=== PATIENT | male | born 1940 | race Caucasian/White ===

== ENCOUNTER → 2016-12-28 | Day surgery (SDC) | payer OTHER ==
[~2016-12-28] VITALS: Ht 167.6 cm; Wt 76.6 kg
[~2016-12-28] MED LIST: *ENALAPRILAT 1.25 MG/ML VIAL PERIprocedural Use ONLY ONE; AMLO5TAB2 PO; ASPI-110 PO; CARV12.52 PO; CEPH-459 PO; CHLORHEXIDINE GLUCONATE 2 % 1 PACK (2 CLOTHS) TOPICAL PRN; DEXAMETHASONE SOD PHOS 4 MG/ML VIAL IV ONE; DO NOT ADM ANY ANTICOAGULANT DRUGS PRN; FURO20TA PO; GLYCOPYRROLATE 1 MG/5 ML SYRINGE IV PUSH ONE; INSULIN HUMAN REGULAR 1,000 UNITS/10 ML VIAL SQ PRN; IOHEXOL 350 MG/ML 50 ML BTL (for RAD DIAG) OTHER ONE; LACTATED RINGER'S 1000 ML INJ 1,000 ML IV ONE; LACTATED RINGER'S 1000 ML IV PRN; LEVO50TA4 PO; LIDOCAINE HCL 1% PF 5 ML AMPULE OTHER ONE; METOPROLOL TARTRATE 25 MG TAB PO PRN; ONDANSETRON HCL 4 MG/2 ML VIAL IV PUSH ONE; PERC5TAB12 PO; PHENYLEPH/NS 1000 MCG/10 ML SYR IV ONE; PIOG15TA5 PO; POVIDONE IODINE 5% (ANTISEPSIS KIT) 4 APPLICATIONS EACH NARE PRN; PROPOFOL 200 MG/20 ML AMP IV ONE; SIMV40TA PO; SODIUM CHLORID 0.9% 500 ML IV PRN; SODIUM CHLORIDE 0.9% FLUSH 10 ML FLUSH IV FLUSH PRN; ceFAZolin 1,000 MG/NS 100 ML IV SCH; ePHEDrine/NS 25 MG/5 ML SYR IV ONE
[2016-12-28 09:21] LABS: AUTOMATED NEUTROPHIL # 3.7 TH/MM3 (1.8-7.7); BASOPHIL % 0.5 % (0.0-2.0); EOSINOPHIL # 0.4 TH/MM3 (0-0.4); HEMATOCRIT 35.4 % (39.0-51.0); HEMO FLAGS DIFF FINAL; LYMPH % 24.2 % (9.0-44.0); LYMPHOCYTE # 1.5 TH/MM3 (1.0-4.8); MEAN CELL VOLUME 87.8 FL (80.0-100.0); MEAN CORPUSCULAR HEMOGLOBIN 29.7 PG (27.0-34.0); MEAN CORPUSCULAR HGB CONC 33.8 % (32.0-36.0); MONO % 8.7 % (0.0-8.0); NEUT % 60.6 % (16.0-70.0); PLATELET COUNT 152 TH/MM3 (150-450); RED BLOOD COUNT 4.03 MIL/MM3 (4.50-5.90); RED CELL DISTRIBUTION WIDTH 15.3 % (11.6-17.2); WHITE BLOOD COUNT 6.1 TH/MM3 (4.0-11.0)
--- NOTE | 2016-12-28 10:21 | EKG ---
Date Performed: 12/28/2016 Time Performed: 08:43:29 PTAGE: 76 years EKG: SINUS BRADYCARDIA WITH FIRST DEGREE AV BLOCK BORDERLINE LEFT AXIS DEVIATION ABNORMAL ECG Co mpared to prior tracing no significant change PREVIOUS TRACING : 08/29/2012 11.03 DOCTOR: Jose Miguel Wilson Interpretating Date/Time 12/28/2016 10:21:18
--- NOTE | 2016-12-28 12:56 | PD.OP ---
Operative Report Date of Surgery: Dec 28, 2016 Preoperative Diagnosis: (1) Ureteral obstruction, right Postoperative Diagnosis: (1) Ureteral obstruction, right Procedure: Cystoscopy, right retrograde pyelogram, right ureteroscopy, balloon dilation right distal ureteral stricture and placement of a shelter right ureteral stent Surgeon: John Paul Nguyễn Election Clerk(s): None Operation and Findings: Indication for procedure: Case of a pleasant 76 year-old gentleman with history of metastatic colon cancer who was recently discovered to have a chronically obstructed right kidney. Patient presents now for cystoscopy, right retrograde pyelogram, right ureteroscopy and possible right stent insertion. Operative procedure in detail: Patient was brought to the operating room suite and placed supine on the OR table. He was then placed under general anesthesia. He was then repositioned in the dorsal lithotomy position and prepped and draped in normal sterile fashion. After appropriate timeout was undertaken I proceeded with cystoscopic evaluation utilizing the rigid cystoscope with the 30 lens. The urethra was patent without stricture formation. The prostate was moderately obstructing with apposition of the lateral lobes. Further passage of the cystoscope within the urinary bladder revealed both right and left ureteral orifice these to be in correct anatomic position. There was no reflux of urine noted on the right and there was clear reflux on the left. I next utilized a sensor 0.035 wire and was only able to advance the wire several centimeters up the right ureter and resistance was met. A 6 [place] open-ended catheter was advanced over the wire and the wire withdrawn. A right retrograde pyelogram study was performed that demonstrated obstruction involving the distal right ureter several centimeters from the ureteral orifice. There was clear demarcation with a markedly dilated proximal ureter. With additional manipulation of the wire I was able to advance it all the way up into the right renal pelvis. The cystoscope was exchanged for the self dilating ureteroscope and right ureteroscopy was performed. The patient was noted to have stricture formation involving the distal ureter approximately 1 cm from the right ureteral orifice the precluded further passage of the scope. Ureteroscope was then exchanged back to the cystoscope and a UroMax 18 [place] 4 cm balloon dilatation catheter was utilized to dilate this very distal stricture. The ureteroscope was then once again utilized at this time I was able to further advance the scope up to the point of the obstruction noted on the retrograde pyelogram study. There appeared to be significant scar tissue formation involving the ureter. There was no evidence of tumor formation or a ureteral stone. I once again exchanged ureteroscope for the cystoscope and attempted to pass a balloon dilatation catheter through the stricture however the stricture was too tight and precluded proper placement of the balloon catheter. Fortunately I was able to advance a 6 [place] 24 cm lobsterman [place] stent beyond the stricture. The catheter was placed in the both cystoscopic and fluoroscopic guidance without difficulty and once the catheter was in place the trailing string was removed. A 16 [place] 10 cc Liriano catheter was then placed and connected to gravity drainage. The patient was transferred to the PACU in satisfactory condition. Plan will be to attempt a repeat balloon dilation of the ureteral stricture sometime in the future pending how well the patient tolerates the stent. If the patient tolerates the stent well might just try to re-ballooned this area during a stent exchanged within the next 12 months. John Paul Nguyễn MD Dec 28, 2016 12:56
[2016-12-28 14:30] VITALS: BP 152/65; PULSE 47; RESP 20; O2SAT 100
[2016-12-28 15:02] VITALS: TEMP 96.5
== END | disposition home or self-care (01) ==
LOC: HSDC 08:21
PROVIDERS: ATTEND Urology
DX: N13.5 Crossing vessel and stricture of ureter without hydronephrosis (principal); N13.30 Unspecified hydronephrosis; I10 Essential (primary) hypertension
CPT/HCPCS: 00910; 52332; 74420; 85025; 93005; C1726; C1769; J1100; J2370; J2405; J3010; J7120; Q9967

== ENCOUNTER 2017-02-04 11:39 | Inpatient (IN) | payer OTHER, MEDICARE ==
[2017-02-04] VITALS (8 sets, daily range): BP systolic 135–177; BP diastolic 67–82; PULSE 56–83; RESP 14–20; TEMP 96.7–100.4; O2SAT 96–99
[~2017-02-04] VITALS: Ht 167.6 cm; Wt 75.0 kg
[~2017-02-04 11:39] MED LIST changes: -*ENALAPRILAT 1.25 MG/ML VIAL PERIprocedural Use ONLY ONE; -ASPI-110 PO; +ASPI1TAB57 PO; -CHLORHEXIDINE GLUCONATE 2 % 1 PACK (2 CLOTHS) TOPICAL PRN; -DEXAMETHASONE SOD PHOS 4 MG/ML VIAL IV ONE; -DO NOT ADM ANY ANTICOAGULANT DRUGS PRN; -GLYCOPYRROLATE 1 MG/5 ML SYRINGE IV PUSH ONE; -INSULIN HUMAN REGULAR 1,000 UNITS/10 ML VIAL SQ PRN; -IOHEXOL 350 MG/ML 50 ML BTL (for RAD DIAG) OTHER ONE; -LACTATED RINGER'S 1000 ML INJ 1,000 ML IV ONE; -LACTATED RINGER'S 1000 ML IV PRN; -LIDOCAINE HCL 1% PF 5 ML AMPULE OTHER ONE; -METOPROLOL TARTRATE 25 MG TAB PO PRN; -ONDANSETRON HCL 4 MG/2 ML VIAL IV PUSH ONE; -PHENYLEPH/NS 1000 MCG/10 ML SYR IV ONE; -POVIDONE IODINE 5% (ANTISEPSIS KIT) 4 APPLICATIONS EACH NARE PRN; -PROPOFOL 200 MG/20 ML AMP IV ONE; -SODIUM CHLORID 0.9% 500 ML IV PRN; -SODIUM CHLORIDE 0.9% FLUSH 10 ML FLUSH IV FLUSH PRN; -ceFAZolin 1,000 MG/NS 100 ML IV SCH; -ePHEDrine/NS 25 MG/5 ML SYR IV ONE
[2017-02-04] MEDS ORDERED: SODIUM CHLOR 0.9% 1000 ML INJ 1,000 ML IV SCH (12:35)
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
[2017-02-04 13:08] LABS: AUTOMATED NEUTROPHIL # 6.6 TH/MM3 (1.8-7.7); BASOPHIL % 0.4 % (0.0-2.0); EOSINOPHIL # 0.1 TH/MM3 (0-0.4); EOSINOPHIL % 1.5 % (0.0-4.0); HEMATOCRIT 37.4 % (39.0-51.0); HEMO FLAGS DIFF FINAL; LYMPH % 14.8 % (9.0-44.0); LYMPHOCYTE # 1.3 TH/MM3 (1.0-4.8); MEAN CELL VOLUME 87.2 FL (80.0-100.0); MEAN CORPUSCULAR HEMOGLOBIN 29.4 PG (27.0-34.0); MEAN CORPUSCULAR HGB CONC 33.7 % (32.0-36.0); MONO % 6.1 % (0.0-8.0); NEUT % 77.2 % (16.0-70.0); PLATELET COUNT 199 TH/MM3 (150-450); RED BLOOD COUNT 4.29 MIL/MM3 (4.50-5.90); RED CELL DISTRIBUTION WIDTH 15.2 % (11.6-17.2); WHITE BLOOD COUNT 8.5 TH/MM3 (4.0-11.0)
[2017-02-04 13:15] LABS: INTERNATIONAL NORMALIZED RATIO 1.1 RATIO; PROTHROMBIN TIME - PATIENT 11.1 SEC (9.8-11.6)
[2017-02-04 13:26] LABS: ANION GAP 10 MEQ/L (5-15); AST (GOT) 15 U/L (15-37); BICARBONATE 23.2 MEQ/L (21.0-32.0); BLOOD UREA NITROGEN 36 MG/DL (7-18); CHLORIDE 105 MEQ/L (98-107); GLOMERULAR FILTRATION RATE 34 ML/MIN (>89); POTASSIUM 4.3 MEQ/L (3.5-5.1); SODIUM (NA) 138 MEQ/L (136-145)
[2017-02-04 13:30] LABS: ALKALINE PHOSPHATASE 84 U/L (45-117); ALT (GPT) 10 U/L (12-78); TOTAL BILIRUBIN ADULT 0.5 MG/DL (0.2-1.0)
[2017-02-04 13:40] LABS: BACTERIA, URINE RARE /hpf; BLOOD, URINE MOD (NEG); COMMENT (UR) CULTURE INDICATED; CULTURE IF INDICATED CULTURE INDICATED; GLUCOSE,URINE NEG (NEG); KETONE, URINE 10 mg/dL (NEG); MUCUS URINE FEW /lpf (OCC); NITRITE,URINE NEG (NEG); PH, URINE 5.5 (5.0-8.5); SQUAMOUS EPITHELIAL CELL URINE 1 /hpf (0-5); URINE COLOR YELLOW (YELLW/STRAW)
--- NOTE | 2017-02-04 15:03 | RADRPT ---
EXAM DATE/TIME: 02/04/2017 14:36 [facility] COMPARISON: CT ABDOMEN & PELVIS W/O CONTRAST, September 27, 2015, 11:35. INDICATIONS : Abdomen pain, nausea, vomiting, and diarrhea since last night ORAL CONTRAST: No oral contrast ingested. RADIATION DOSE: 7.80 CTDIvol (mGy) MEDICAL HISTORY : Carcinoma, colon. Diabetes mellitus type 2. Carcinoma, lung. SURGICAL HISTORY : Colon resection. ENCOUNTER: Initial ACUITY: 1 day PAIN SCALE: 9/10 LOCATION: mid abdomen TECHNIQUE: Volumetric scanning of the abdomen and pelvis was performed. Using automated exposure control and ad justment of the mA and/or kV according to patient size, radiation dose was kept as low as reasonably achievable to obtain optimal diagnostic quality images. DICOM format image data is available electro nically for review and comparison. FINDINGS: LOWER LUNGS: There is a small left pleural effusion. LIVER: Homogeneous density without lesion. There is no dilation of the biliary tree. No calcified gallston es. SPLEEN: Normal size without lesion. PANCREAS: Within normal limits. KIDNEYS: The left kidney remains unremarkable. Right kidney is smaller in size on the prior study with atrophi c change and simple cyst again noted. There is moderate hydronephrosis with a ureteral stent catheter in place. ADRENAL GLANDS: Within normal limits. VASCULAR: There is no aortic aneurysm. BOWEL/MESENTERY: Abnormal bowel gas pattern with multiple loops of borderline dilated air-containing small bowel with multiple air-fluid levels. Postsurgical changes are again noted in the distal colon which is decompre ssed with anastomotic jagdeep. There is ascitic fluid surrounding portions of the liver margin. There is a small hiatal hernia. ABDOMINAL WALL: Within normal limits. RETROPERITONEUM: There is no lymphadenopathy. BLADDER: No wall thickening or mass. REPRODUCTIVE: Prostate gland remains mildly prominent benign calcifications. INGUINAL: There is no lymphadenopathy or hernia. MUSCULOSKELETAL: Within normal limits for patient age. CONCLUSION: 1. Abnormal bowel gas pattern of concern for small bowel obstruction. 2. Moderate right hydronephrosis with ureteral stent catheter in place. The right kidney is mildly mo re atrophic than on the prior exam. 3. Small amount of ascitic fluid. 4. Small left effusion. Hadley Dickson MD on February 04, 2017 at 14:49 Board Certified Radiologist. This report was verified electronically.
[2017-02-04] MEDS ORDERED: cefTRIAXone INJ 1,000 MG in SODIUM CHLORIDE 0.9% INJ 100 ML IV ONE (15:45)
[2017-02-04] MEDS ORDERED: ONDANSETRON HCL 4 MG/2 ML VIAL IV PUSH ONE (16:15)
[2017-02-04] MEDS: NICOTINE 14 MG/24 HR PATCH T-DERMAL SCH (16:30)
[2017-02-04] MEDS ORDERED: SENNOSIDES 8.6 MG TAB PO PRN (16:45)
[2017-02-04] MEDS ORDERED: NALOXONE HCL 0.4 MG/ML AMP IV PUSH PRN (16:45)
[2017-02-04] MEDS ORDERED: PROCHLORPERAZINE 25 MG SUPP RECTAL PRN (16:45)
[2017-02-04] MEDS ORDERED: ACETAMINOPHEN 650 MG SUPP RECTAL PRN (16:45)
[2017-02-04] MEDS ORDERED: ONDANSETRON HCL 4 MG/2 ML VIAL IVP PRN (16:45)
[2017-02-04] MEDS ORDERED: MORPHINE SULFATE 4 MG/ML INJ IV PUSH PRN ×3 (16:45)
[2017-02-04] MEDS ORDERED: MAGNESIUM HYDROXIDE SUSP 30 ML CUP PO PRN (16:45)
[2017-02-04] MEDS ORDERED: SODIUM CHLORIDE 0.9% FLUSH 10 ML FLUSH IV FLUSH PRN (16:45)
[2017-02-04] MEDS ORDERED: BISACODYL 10 MG SUPP RECTAL PRN (16:45)
[2017-02-04] MEDS ORDERED: DEXTROSE 50% IN WATER 50 ML VIAL(D50) IV PUSH PRN (16:45)
[2017-02-04] MEDS ORDERED: GLUCAGON 1 MG/ML VIAL OTHER PRN (16:45)
[2017-02-04] MEDS ORDERED: LACTULOSE SYRUP 20 GM/30 ML CUP PO PRN (16:45)
[2017-02-04] MEDS ORDERED: PHENOL 1.4% SOLN 180 ML BTL OROPHARYNG PRN (16:45)
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
[2017-02-04] MEDS: INSULIN ASPART SUPPLEMENTAL SCALE SQ SCH ×2 (17:00→20:27)
[2017-02-04] MEDS ORDERED: MORPHINE SULFATE 2 MG/ML INJ IV PRN (17:15)
--- NOTE | 2017-02-04 17:24 | PD.CONS ---
cc: Giovanny Wiggins MD [facility] Service General Surgery Consult Requested By Thai MAE Reason for Consult SBO Primary Care Physician Estefany Boothe M.D. History of Present Illness This is a 76 year old male with a past medical history of testicular cancer, colon cancer with resection, hypertension, type two diabetes mellitus, high cholesterol, and hypothyroidism. The patient had a RIGHT uretal stent place by Dr. Nguyễn on Dec 28 for ureteral obstruction. Since then, he has not felt well and has had mild abdominal pain. His appetite and energy level have decreased. This morning he woke up with nausea and had an episode of emesis. His last bowel movement was yesterday. He denies any recent travel or sick contacts. A CT abdomen/pelvis was obtained in the ED and showed an abnormal gas pattern concerning for a small bowel obstruction. An NGT was place and the patient had immediate relief of nausea. The patient has been operated on by Dr. Baca for his colon resection. A General Surgery consultation has been requested for evaluation of small bowel obstruction. Review of Systems Constitutional: COMPLAINS OF: Fatigue, Change in appetite, DENIES: Dizziness Endocrine: DENIES: Polydipsia, Polyuria, Polyphagia Eyes: DENIES: Diplopia Ears, nose, mouth, throat: DENIES: Hearing loss Respiratory: DENIES: Apneas Cardiovascular: DENIES: Chest pain Gastrointestinal: COMPLAINS OF: Abdominal pain, Nausea, Vomiting Genitourinary: DENIES: Urgency Musculoskeletal: DENIES: Joint pain Integumentary: DENIES: Abnormal pigmentation Hematologic/lymphatic: DENIES: Bruising Immunologic/allergic: DENIES: Eczema Neurologic: DENIES: Abnormal gait, Headache Psychiatric: DENIES: Confusion, Mood changes, Depression Past Family Social History Past Medical History Testicular cancer Colon cancer with resection Hypertension Type 2 diabetes mellitus Hypothyroidism Past Surgical History RIGHT kidney stent placement (Dec 2016) Colon resection Reported Medications Simvastatin Coreg Amlodipine Aspirin Furosemide Pioglitazone Levothyroxine Allergies: Coded Allergies: No Known Allergies (Unverified , 11/18/16) Active Ordered Medications Current Medications Medications (Trade) Dose Ordered Sig/Qasim Route Start Time Stop Time Status Last Admin (Habitrol 14 Mg Patch.24 Hr) 1 patch DAILY T-DERMAL 02/04/17 16:30 Miscellaneous Information 1 DAILY T-DERMAL 02/05/17 09:00 Potassium Chloride/Dextrose/ Sod Cl 1,000 ml @ 100 mls/hr Q10H IV 02/04/17 17:00 (Tylenol Supp) 650 mg Q4H PRN RECTAL 02/04/17 16:45 (Pepcid Inj) 10 mg Q12HR IV PUSH 02/04/17 21:00 (Reglan Inj) 5 mg Q6HR IV PUSH 02/04/17 18:00 (Heparin Inj) 5,000 units Q8H SQ 02/04/17 22:00 (NS Flush) 2 ml UNSCH PRN IV FLUSH 02/04/17 16:45 (NS Flush) 2 ml BID IV FLUSH 02/04/17 21:00 (Zofran Inj) 4 mg Q6H PRN IVP 02/04/17 16:45 (Compazine Supp) 25 mg Q12H PRN RECTAL 02/04/17 16:45 (Morphine Inj) 4 mg Q3H PRN IV PUSH 02/04/17 16:45 (Morphine Inj) 4 mg Q3H PRN IV PUSH 02/04/17 16:45 (Narcan Inj) 0.4 mg UNSCH PRN IV PUSH 02/04/17 16:45 (Qian-Colace) 1 tab BID PO 02/04/17 21:00 (Milk Of Magnesia Liq) 30 ml Q12H PRN PO 02/04/17 16:45 (Senokot) 17.2 mg Q12H PRN PO 02/04/17 16:45 (Dulcolax Supp) 10 mg DAILY PRN RECTAL 02/04/17 16:45 (Lactulose Liq) 30 ml DAILY PRN PO 02/04/17 16:45 (Chloraseptic [place]) 2 spray Q2H PRN OROPHARYNG 02/04/17 16:45 (Norvasc) 5 mg DAILY PO 02/05/17 09:00 (Coreg) 12.5 mg BID PO 02/04/17 21:00 (Lasix Inj) 20 mg DAILY IV PUSH 02/05/17 09:00 (Synthroid Inj) 25 mcg DAILY@06 IV PUSH 02/05/17 06:00 (D50w (Vial) Inj) 50 ml UNSCH PRN IV PUSH 02/04/17 16:45 (Glucagon Inj) 1 mg UNSCH PRN OTHER 02/04/17 16:45 (NovoLOG SUPPLEMENTAL SCALE) 1 ACHS SLIDING SCALE SQ 02/04/17 17:00 Ceftriaxone Sodium 1000 mg/ Sodium Chloride 100 ml @ 200 mls/hr Q24H IV 02/05/17 15:00 (Morphine Inj) 2 mg Q3H PRN IV 02/04/17 17:15 Family History Non contributory Social History Denies tobacco use Denies ETOH use Denies illicit drug use Lives with his . Is independent with ADLs. Patient has three daughters--- Two that live locally and one that lives in [facility]. Physical Exam Vital Signs Vital Signs Date Time Temp Pulse Resp B/P (MAP) Pulse Ox O2 Delivery O2 Flow Rate FiO2 02/04/17 16:16 83 18 177/81 (113) 98 Room Air 02/04/17 13:04 18 98 Room Air 02/04/17 13:04 18 02/04/17 11:42 97.5 56 14 135/73 (93) 99 Physical Exam GENERAL: Very pleasant 76 year old male resting in bed in no acute distress. SKIN: Warm and dry. HEAD: Atraumatic. Normocephalic. EYES: Pupils equal and round. No scleral icterus. No injection or drainage. ENT: No nasal bleeding or discharge. Mucous membranes pink and moist. NECK: Trachea midline. CARDIOVASCULAR: Regular rate and rhythm. RESPIRATORY: No accessory muscle use. Clear to auscultation. Breath sounds equal bilaterally. GASTROINTESTINAL: Abdomen soft, minimally tender with palpation, nondistended. Low transverse incision ---well healed. No hernias noted. NGT in place. MUSCULOSKELETAL: Extremities without clubbing, cyanosis, or edema. No obvious deformities. NEUROLOGICAL: Awake and alert. No obvious cranial nerve deficits. Motor grossly within normal limits. Five out of 5 muscle strength in the arms and legs. Normal speech. PSYCHIATRIC: Appropriate mood and affect; insight and judgment normal. Laboratory Laboratory Tests Test 02/04/17 12:00 02/04/17 12:54 Urine Color YELLOW Urine Turbidity HAZY Urine pH 5.5 Urine Specific [place] 1.019 Urine Protein 30 Urine Glucose (UA) NEG Urine Ketones 10 Urine Occult Blood MOD Urine Nitrite NEG Urine Bilirubin NEG Urine Urobilinogen LESS THAN 2.0 Urine Leukocyte Esterase LARGE Urine RBC 12 Urine WBC 159 Urine WBC Clumps RARE Urine Squamous Epithelial Cells 1 Urine Bacteria RARE Urine Mucus FEW Microscopic Urinalysis Comment CULTURE INDICATED White Blood Count 8.5 Red Blood Count 4.29 Hemoglobin 12.6 Hematocrit 37.4 Mean Corpuscular Volume 87.2 Mean Corpuscular Hemoglobin 29.4 Mean Corpuscular Hemoglobin Concent 33.7 Red Cell Distribution Width 15.2 Platelet Count 199 Mean Platelet Volume 7.4 Neutrophils (%) (Auto) 77.2 Lymphocytes (%) (Auto) 14.8 Monocytes (%) (Auto) 6.1 Eosinophils (%) (Auto) 1.5 Basophils (%) (Auto) 0.4 Neutrophils # (Auto) 6.6 Lymphocytes # (Auto) 1.3 Monocytes # (Auto) 0.5 Eosinophils # (Auto) 0.1 Basophils # (Auto) 0.0 CBC Comment DIFF FINAL Differential Comment Prothrombin Time 11.1 Prothromb Time International Ratio 1.1 Activated Partial Thromboplast Time 33.0 Blood Urea Nitrogen 36 Creatinine 1.94 Random Glucose 99 Total Protein 7.6 Albumin 3.6 Calcium Level 9.1 Alkaline Phosphatase 84 Aspartate Amino Transf (AST/SGOT) 15 Alanine Aminotransferase (ALT/SGPT) 10 Total Bilirubin 0.5 Sodium Level 138 Potassium Level 4.3 Chloride Level 105 Carbon Dioxide Level 23.2 Anion Gap 10 Estimat Glomerular Filtration Rate 34 Lipase 104 Date/Time Source Procedure Growth Status 02/04/17 12:00 Urine Clean Catch Urine Culture Pending Received Result Diagram: 02/04/17 1254 02/04/17 1254 Imaging Last 48 hours Impressions Abdomen/Pelvis CT 02/04/17 1413 Signed Impressions: Service Date/Time: January 14:36 - CONCLUSION: 1. Abnormal bowel gas pattern of concern for small bowel obstruction. 2. Moderate right hydronephrosis with ureteral stent catheter in place. The right kidney is mildly more atrophic than on the prior exam. 3. Small amount of ascitic fluid. 4. Small left effusion. Hadley Dickson MD Assessment and Plan Assessment and Plan 76 year old male s/p colon cancer with resection; testicular cancer with SBO -Agree with NGT -NPO -General Surgery team has consulted and notified Dr. Baca for SBO management per the request of the family -Will defer any surgical management to Dr. Baca -General Surgery will be available if needed -Please call with any questions -Thank you for this consult Discussed Condition With Dr. Wiggins Mr. Cavanaugh + and daughter at bedside Attending Statement I personally evaluated this patient. He has an NG tube in place. He has been operated on by Dr Baca in the past, and the family requests he see him again. I personally communicated with Dr Baca the patient's location. The exam, history, and the medical decision-making described in the above note were completed with the assistance of the mid-level provider. I reviewed and agree with the findings presented. I attest that I had a [id number] encounter with the patient on the same day, and personally performed and documented my assessment and findings in the medical record. Lubna Avina Feb 04, 2017 17:24 Giovanny Wiggins MD Feb 06, 2017 08:01
[2017-02-04] MEDS ORDERED: METOCLOPRAMIDE HCL 10 MG/2 ML VIAL IV PUSH SCH (18:00)
[2017-02-04] MEDS: D5-1/2 NS + KCL 20 MEQ INJ 1,000 ML IV SCH (18:00)
[2017-02-04] MEDS: FAMOTIDINE 20 MG/2 ML VIAL IV PUSH SCH (20:28)
[2017-02-04] MEDS ORDERED: DOCUSATE SODIUM 50 MG/SENNA 8.6 MG TAB PO SCH (21:00)
[2017-02-04] MEDS ORDERED: SODIUM CHLORIDE 0.9% FLUSH 10 ML FLUSH IV FLUSH SCH (21:00)
[2017-02-04] MEDS: CARVEDILOL 12.5 MG TAB PO SCH (21:31)
[2017-02-04] MEDS: HEPARIN SODIUM - SQ 10,000 UNITS/ML VIAL SQ SCH (21:33)
[2017-02-04] MEDS: METOCLOPRAMIDE HCL 10 MG/2 ML VIAL IM SCH (21:34)
[2017-02-05] VITALS: PULSE 66
[2017-02-05] MEDS: D5-1/2 NS + KCL 20 MEQ INJ 1,000 ML IV SCH ×2 (02:37→14:33)
[2017-02-05 04:10] VITALS: BP 119/58; PULSE 78; RESP 18; TEMP 98.4; O2SAT 96
[2017-02-05] MEDS: HEPARIN SODIUM - SQ 10,000 UNITS/ML VIAL SQ SCH ×2 (04:56→14:00)
[2017-02-05] MEDS: METOCLOPRAMIDE HCL 10 MG/2 ML VIAL IM SCH ×3 (04:59→14:37)
[2017-02-05 05:40] LABS: HEMATOCRIT 35.4 % (39.0-51.0); HEMO FLAGS AUTO DIFF; MEAN CELL VOLUME 87.3 FL (80.0-100.0); MEAN CORPUSCULAR HEMOGLOBIN 29.7 PG (27.0-34.0); PLATELET COUNT 192 TH/MM3 (150-450); RED BLOOD COUNT 4.05 MIL/MM3 (4.50-5.90); RED CELL DISTRIBUTION WIDTH 14.8 % (11.6-17.2); WHITE BLOOD COUNT 4.1 TH/MM3 (4.0-11.0)
[2017-02-05] MEDS ORDERED: LEVOTHYROXINE SODIUM 100 MCG VIAL IV PUSH SCH (06:00)
[2017-02-05 06:05] LABS: ALKALINE PHOSPHATASE 65 U/L (45-117); ALT (GPT) 8 U/L (12-78); ANION GAP 8 MEQ/L (5-15); AST (GOT) 14 U/L (15-37); BICARBONATE 23.8 MEQ/L (21.0-32.0); BLOOD UREA NITROGEN 38 MG/DL (7-18); CHLORIDE 106 MEQ/L (98-107); FREE T4 1.19 NG/DL (0.76-1.46); GLOMERULAR FILTRATION RATE 33 ML/MIN (>89); MAGNESIUM 2.2 MG/DL (1.5-2.5); POTASSIUM 4.5 MEQ/L (3.5-5.1); SODIUM (NA) 138 MEQ/L (136-145); TOTAL BILIRUBIN ADULT 0.4 MG/DL (0.2-1.0)
[2017-02-05] MEDS: INSULIN ASPART SUPPLEMENTAL SCALE SQ SCH ×3 (07:22→16:24)
[2017-02-05 08:00] VITALS: BP 181/74; PULSE 64; RESP 17; TEMP 97.9; O2SAT 95
[2017-02-05] MEDS: CARVEDILOL 12.5 MG TAB PO SCH (08:28)
[2017-02-05] MEDS: FAMOTIDINE 20 MG/2 ML VIAL IV PUSH SCH (08:29)
[2017-02-05] MEDS: NICOTINE 14 MG/24 HR PATCH T-DERMAL SCH (08:37)
[2017-02-05] MEDS ORDERED: REMOVE OLD PATCH T-DERMAL SCH (09:00)
[2017-02-05] MEDS ORDERED: amLODIPine BESYLATE 5 MG TAB PO SCH (09:00)
[2017-02-05] MEDS ORDERED: FUROSEMIDE 20 MG/2 ML VIAL IV PUSH SCH (09:00)
[2017-02-05 09:15] LABS: BANDS 20 % (0-6); EOSINOPHILS 1 % (0-4); NEUTROPHIL # MANUAL DIFF 2.5 TH/MM3 (1.8-7.7); POLYS (SEG NEUTROPHILS) 42 % (16-70); WBC DIFF SAMPLE 100
[2017-02-05 09:16] LABS: DOHLE BODIES PRESENT (NONE SEEN); PLATELET ESTIMATE SMEAR NORMAL (NORMAL); PLATELET MORPHOLOGY NORMAL (NORMAL); SCAN/DIFF FINAL DIFF MANUAL; TOXIC GRANULATION 1+ (NORMAL)
--- NOTE | 2017-02-05 10:04 | RADRPT ---
EXAM DATE/TIME: 02/05/2017 08:43 [facility] COMPARISON: CT ABDOMEN & PELVIS W/O CONTRAST, February 04, 2017, 14:36. INDICATIONS : Abdominal distention. Follow up bowel obstruction. MEDICAL HISTORY : Hypothyroidism. Hypercholesterolemia. Hypertension. Lung CA. Colon CA. Testicular CA. SURGICAL HISTORY : Tonsillectomy. Colon resection. Renal stent. Colectomy. Right leg. ENCOUNTER: Initial ACUITY: 2 days PAIN SCORE: 0/10 LOCATION: abdomen FINDINGS: A right ureteral stent is again noted in good position. There is persistent mild fluid and gaseous di stention of bowel loops throughout the abdomen, similar to prior CT appearance. No suspicious calcifi c densities are identified. There are degenerative changes in the spine and hips. CONCLUSION: Persistent dilatation of bowel Tavo Goldman MD on February 05, 2017 at 10:00 Board Certified Radiologist. This report was verified electronically.
[2017-02-05 10:56] LABS: HEMOGLOBIN A1a 1.9 %; HEMOGLOBIN A1b 0.8 %; HEMOGLOBIN Ao 83.4 %; HEMOGLOBIN F 0.9 %; HEMOGLOBIN LA1C 2.4 %; HEMOGLOBIN P3 5.9 %
[2017-02-05 11:01] VITALS: O2SAT 95
--- NOTE | 2017-02-05 11:30 | HHI.PR ---
Subjective Remarks Follow-up visit small bowel obstruction, metastatic cancer, DM 2, HLD, hypothyroidism. Patient seen and examined today lying in bed. Patient states that he is feeling fine passing gas. Patient states that Dr. Baca came in to see him and took out his NG tube as well as his monitoring device. States that Dr. Baca told him that he does not believe that patient really had small bowel obstruction. Patient states that he is tolerating sips of shin denies chest since last night. Denies pain and discomfort. Denies SOB/ dyspnea. Denies chest pain, palpitations, headaches, dizziness. Denies fevers, chills, n/ v/d. Denies hematuria, dysuria. Objective Vitals Vital Signs Date Time Temp Pulse Resp B/P (MAP) Pulse Ox O2 Delivery O2 Flow Rate FiO2 02/05/17 11:01 95 02/05/17 08:00 97.9 64 17 181/74 (109) 95 02/05/17 04:10 98.4 78 18 119/58 (78) 96 02/05/17 00:00 66 02/04/17 23:57 100.4 72 17 147/67 (93) 98 02/04/17 20:52 96.7 63 20 171/72 (105) 96 02/04/17 18:50 65 02/04/17 17:35 98.8 62 17 159/70 (99) 97 02/04/17 17:00 97.8 87 17 163/82 (109) 99 02/04/17 16:16 83 18 177/81 (113) 98 Room Air 02/04/17 13:04 18 98 Room Air 02/04/17 13:04 18 02/04/17 11:42 97.5 56 14 135/73 (93) 99 I/O 02/04/17 02/04/17 02/04/17 02/05/17 02/05/17 02/05/17 07:00 15:00 23:00 07:00 15:00 23:00 Intake Total 1100 ml 800 ml Output Total 1680 ml Balance 1100 ml -880 ml Intake IV Total 1100 ml 800 ml Output Urine Total 680 ml Gastric Drainage Total 1000 ml Result Diagram: 02/05/1751402/05/17514 Objective Remarks GENERAL: This is a well-nourished, well-developed patient, in no apparent distress. SKIN: Warm and dry. HEENT: Normocephalic. Pupils equal round and reactive. Nose without bleeding. Airway patent. NECK: Trachea midline. No JVD. Supple. CARDIOVASCULAR: Regular rate and rhythm without murmurs, gallops, or rubs. RESPIRATORY: Clear to auscultation. Breath sounds equal bilaterally. No wheezes , rales, or rhonchi. GASTROINTESTINAL: Abdomen soft, non-tender, nondistended. Bowel Sounds normoactive x4. MUSCULOSKELETAL: Extremities without clubbing, cyanosis, or edema. NEUROLOGICAL: Awake and alert. Oriented to time, place, person. No focal neuro deficit. Moves all extremities. Normal speech. 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 Possible small bowel obstruction - NGT was placed yesterday in the ED. Removed by Dr. Baca. - CT of the abdomen and pelvis showed 1. Abnormal bowel gas pattern of concern for small bowel obstruction. 2. Moderate right hydronephrosis with ureteral stent catheter in place. Right kidney is mildly more atrophic than prior exam. 3. Small amount of ascitic fluid. 4. Small left effusion. - Pain management as needed. - Patient tolerating sips of water, ice chips. May advance diet as tolerated. - KUB showed persistent dilatation of bowel Urinary tract infection, acute possibly E.Coli - Patient received ceftriaxone in the ED. - Follow-up cultures showed no growth in 24 hours. HTN, chronic - Continue home medication amlodipine 5 mg, Lasix 20 mg, carvedilol 12.5 mg twice a day - Monitor BP trend Hypothyroidism, chronic - Continue levothyroxine 25 g, switch to by mouth DVT prop heparin Discharge Planning Plan to DC home and cleared per Dr. Baca. Attending Statement Patient denies any abdominal pain. He stated that he drank dariusz kevin without difficulty. Deny any nausea or vomiting. Deny abdominal pain. Patient stated that he is passing gas. Patient stated that he was seen by Dr. Baca this morning and stated that he was not impressed with the imaging and stated that most like the patient to be discharged today. Possible small bowel obstruction Abdominal x-ray repeated today by Dr. Baca which shows persistent dilatation of the bowels. Gen NAD CV RRR. no r/m/g Abd soft NDNT Questional small bowel obstruction Patient shows no signs of small bowel obstruction at the moment. Will advance diet and see if patient tolerates diet. If patient tolerates diet possible discharge home today if okay by Dr. Baca. Problem Qualifiers (1) UTI (urinary tract infection): Qualified Codes: N39.0 - Urinary tract infection, site not specified Camila Burgos Feb 05, 2017 11:30 Amita Coello MD Feb 05, 2017 14:50
[2017-02-05 12:00] VITALS: BP 119/58; PULSE 54; RESP 18; TEMP 97.3; O2SAT 99
[2017-02-05] MEDS ORDERED: cefTRIAXone INJ 1,000 MG in SODIUM CHLORIDE 0.9% INJ 100 ML IV SCH (15:00)
[2017-02-05 16:00] VITALS: BP 142/62; PULSE 68; RESP 17; TEMP 98.2; O2SAT 95
--- NOTE | 2017-02-05 17:24 | HHI.PR ---
Subjective Remarks C/R Surg afebrile, VSS UO good NGT min +appet Objective - Vital Signs Date Time Temp Pulse Resp B/P (MAP) Pulse Ox O2 Delivery O2 Flow Rate FiO2 02/05/17 16:00 98.2 68 17 142/62 (88) 95 02/04/17 16:16 Room Air Result Diagram: 02/05/17 0515 02/05/17 0515 Objective Remarks PE alert Abd - soft, flat, min tympany +flatus Jorge Luis Baca MD Feb 05, 2017 17:24
--- NOTE | 2017-02-05 17:43 | MB ---
cc: LADARIUS DOUGHERTY M.D., BENNETT P. MD CHEW, BOON Y. M.D. DATE OF CONSULTATION February 04, 2017 REASON FOR CONSULTATION Possible bowel obstruction, abdominal pain, history of colon cancer. HISTORY OF PRESENT ILLNESS Mr. Cavanaugh is a 76-year-old male known previously after a colon cancer resected several years ago. 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 The patient has not been seen for several years, undergoing chemotherapy and radiation up to last July 10, 2016. Had obstructed right kidney most recently in December of 2016 and had a stent placed. The patient complains of pain since the stent was placed and has been uncomfortable since. Feels like he has been having more abdominal cramping and distension. Several days he was unable to keep any food down and had some nausea, vomiting and increased abdominal pain. The patient came to the emergency room for evaluation at which time a CT scan showed dilated loops of small bowel consistent with a possible small bowel obstruction. He also has continued obstruction of the right kidney despite the placement of the stent. Please see the admitting history and physical for more complete past medical and surgical history. PERTINENT PHYSICAL GENERAL: Very pleasant fairly well-developed male in no acute distress. ABDOMEN: Abdomen was very soft and flat, little tympanic, no real rebound or guarding. No masses noted. NG tube was in place draining very little bilious type material. ANAL INSPECTION: Revealed benign canal. Digital exam revealed good tone with no masses or tenderness and no stool in the lumen. LABORATORY FINDINGS Reviewed all labs and CT scans. IMPRESSION A 76-year-old male with long history dating back to a colon cancer resected many years ago with known metastatic disease, recently treated with chemotherapy and then radiation. The patient has had a 24-40 hour history of abdominal pain and cramping consistent with a partial small-bowel obstruction. CT scan does show dilated bowel loops but there is air and some gaseous material in the colon. Nasogastric tube has relieved some of his gastric distension and he does feel better. Suggested continued IV fluids, put the nasogastric tube to gravity drainage and continue ambulation. See if he gets better in the morning, may be able to have the nasogastric tube discontinued and advance on a progressive diet. If he is not able to tolerate a diet and has more abdominal pain and vomiting then will need to pursue additional workup for small bowel disease and possible metastatic cancer. MD KAREN Spivey/EMELINA /5:25 PM /5:30 PM
== END 2017-02-05 18:52 | disposition home or self-care (01) | DRG 389 ==
LOC: NEPD 11:39 → NEDA 16:04 → N07A 17:17
PROVIDERS: ADMIT Hospitalist; ATTEND Family Medicine
DX: K56.600 Partial intestinal obstruction, unspecified as to cause (principal); N13.30 Unspecified hydronephrosis; N39.0 Urinary tract infection, site not specified; E11.9 Type 2 diabetes mellitus without complications; I10 Essential (primary) hypertension; E03.9 Hypothyroidism, unspecified; E78.5 Hyperlipidemia, unspecified; F17.210 Nicotine dependence, cigarettes, uncomplicated; Z85.47 Personal history of malignant neoplasm of testis; Z85.038 Personal history of other malignant neoplasm of large intestine; Z92.21 Personal history of antineoplastic chemotherapy; Z92.3 Personal history of irradiation
CPT/HCPCS: 74020; 74176; 80053; 81001; 82948; 83036; 83690; 83735; 84100; 84439; 84443; 85007; 85025; 85027; 85610; 85730; 87086; J0696; J1644; J1940; J2405; J2765; J3480; J7030

== ENCOUNTER 2017-02-22 16:55 | Inpatient (IN) | payer OTHER, MEDICARE ==
[~2017-02-22] VITALS: Ht 167.6 cm; Wt 72.0 kg
[~2017-02-22 16:55] MED LIST changes: -CEPH-459 PO; +HYOS1TAB9 PO; -PERC5TAB12 PO
[2017-02-22] MEDS ORDERED: SODIUM CHLORID 0.9% 500 ML INJ 500 ML IV ONE (18:15)
[2017-02-22 18:16] VITALS: BP 137/93; PULSE 98; RESP 18; TEMP 98.6; O2SAT 99
[2017-02-22] MEDS: PANTOPRAZOLE SODIUM 40 MG VIAL IV PUSH SCH (19:14)
[2017-02-22] MEDS: SODIUM CHLOR 0.9% 1000 ML INJ 1,000 ML IV SCH (19:18)
[2017-02-22 20:02] LABS: AUTOMATED NEUTROPHIL # 6.1 TH/MM3 (1.8-7.7); BASOPHIL % 0.6 % (0.0-2.0); EOSINOPHIL # 0.2 TH/MM3 (0-0.4); EOSINOPHIL % 2.6 % (0.0-4.0); HEMATOCRIT 38.1 % (39.0-51.0); HEMOGLOBIN 12.9 GM/DL (13.0-17.0); LYMPH % 15.1 % (9.0-44.0); LYMPHOCYTE # 1.3 TH/MM3 (1.0-4.8); MEAN CELL VOLUME 86.8 FL (80.0-100.0); MEAN CORPUSCULAR HEMOGLOBIN 29.3 PG (27.0-34.0); MEAN CORPUSCULAR HGB CONC 33.8 % (32.0-36.0); MEAN PLATELET VOLUME 7.9 FL (7.0-11.0); MONO % 8.9 % (0.0-8.0); MONOCYTE # 0.8 TH/MM3 (0-0.9); NEUT % 72.8 % (16.0-70.0); PLATELET COUNT 204 TH/MM3 (150-450); RED BLOOD COUNT 4.39 MIL/MM3 (4.50-5.90); RED CELL DISTRIBUTION WIDTH 15.3 % (11.6-17.2); WHITE BLOOD COUNT 8.4 TH/MM3 (4.0-11.0)
[2017-02-22 20:22] LABS: ALBUMIN 3.8 GM/DL (3.4-5.0); AST (GOT) 34 U/L (15-37); BICARBONATE 22.8 MEQ/L (21.0-32.0); BLOOD UREA NITROGEN 53 MG/DL (7-18); CALCIUM 8.6 MG/DL (8.5-10.1); CHLORIDE 98 MEQ/L (98-107); GLOMERULAR FILTRATION RATE 23 ML/MIN (>89); GLUCOSE,RANDOM 82 MG/DL (74-106); SODIUM (NA) 134 MEQ/L (136-145)
--- NOTE | 2017-02-22 20:25 | HHI.PR ---
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 - Rx chemoRT - obstr RT kidney - stent placed few weeks ago Pt admitted last week with ileus, pos SBO - resolved with conservative Rx Now with additional cramps, pain ,decr PO - did have BM today poss partial SBO Objective - Vital Signs Date Time Temp Pulse Resp B/P (MAP) Pulse Ox O2 Delivery O2 Flow Rate FiO2 02/22/17 18:16 98.6 98 18 137/93 (108) 99 Result Diagram: 02/22/171919 Objective Remarks PE alert, ill appearing HEENT - dry, pink membranes, poor skin turgor Chest - clear Abd - soft, mild tympany, non-tender, no masses Extr - no edema A/P Assessment and Plan Imp: Hx mets/colon cancer - now with recurrent ileus or SBO replace IVF OOB check KUB/upright Jorge Luis Baca MD Feb 22, 2017 20:25
[2017-02-22 20:26] LABS: ALKALINE PHOSPHATASE 78 U/L (45-117); ALT (GPT) 28 U/L (12-78); TOTAL BILIRUBIN ADULT 0.9 MG/DL (0.2-1.0); TOTAL PROTEIN 7.7 GM/DL (6.4-8.2)
--- NOTE | 2017-02-22 20:49 | RADRPT ---
EXAM DATE/TIME: 02/22/2017 20:01 [facility] COMPARISON: ABDOMEN FLAT & UPRIGHT, February 05, 2017, 8:43. INDICATIONS : Central abdominal pain since ureteral stent placement. MEDICAL HISTORY : Carcinoma, colon. Diabetes mellitus type II. Carcinoma, lung. SURGICAL HISTORY : Colon resection. ENCOUNTER: Subsequent ACUITY: 2 months PAIN SCORE: 5/10 LOCATION: Bilateral middle abdomen FINDINGS: Double-J stent is present on the right side, stable in position. There are multiple dilated loops of small bowel which measure up to 5 cm in dimension. The degree of gaseous distention has increased w hen compared to prior examination 02/05/17. No gas seen in the colon. There are multiple air-fluid l evels seen in small bowel as well. Osseous structures are intact. CONCLUSION: Increasing gaseous distention of small bowel and air-fluid levels. Differential considerations inclu de dynamic ileus and small bowel obstruction. Matt Henson MD on February 22, 2017 at 20:46 Board Certified Radiologist. This report was verified electronically.
[2017-02-22] MEDS: CARVEDILOL 12.5 MG TAB PO SCH (23:15)
[2017-02-23] VITALS (7 sets, daily range): BP systolic 132–150; BP diastolic 60–69; PULSE 55–59; RESP 18–20; TEMP 97.4–98.5; O2SAT 98–99
[2017-02-23] MEDS: SODIUM CHLOR 0.9% 1000 ML INJ 1,000 ML IV SCH ×3 (03:45→23:00)
[2017-02-23 06:16] LABS: BASOPHIL # 0.1 TH/MM3 (0-0.2); BASOPHIL % 0.9 % (0.0-2.0); EOSINOPHIL # 0.2 TH/MM3 (0-0.4); EOSINOPHIL % 3.8 % (0.0-4.0); HEMATOCRIT 35.4 % (39.0-51.0); LYMPH % 18.3 % (9.0-44.0); LYMPHOCYTE # 1.1 TH/MM3 (1.0-4.8); MEAN CELL VOLUME 87.2 FL (80.0-100.0); MEAN CORPUSCULAR HEMOGLOBIN 29.6 PG (27.0-34.0); MONO % 9.2 % (0.0-8.0); MONOCYTE # 0.5 TH/MM3 (0-0.9); NEUT % 67.8 % (16.0-70.0); PLATELET COUNT 173 TH/MM3 (150-450); RED BLOOD COUNT 4.05 MIL/MM3 (4.50-5.90); RED CELL DISTRIBUTION WIDTH 14.8 % (11.6-17.2); WHITE BLOOD COUNT 5.9 TH/MM3 (4.0-11.0)
[2017-02-23 06:45] LABS: CALCIUM 8.2 MG/DL (8.5-10.1); CREATININE 2.3 MG/DL (0.60-1.30)
[2017-02-23] MEDS: LEVOTHYROXINE SODIUM 50 MCG TAB PO SCH (07:03)
[2017-02-23] MEDS: amLODIPine BESYLATE 5 MG TAB PO SCH (09:00)
[2017-02-23] MEDS: CARVEDILOL 12.5 MG TAB PO SCH ×2 (09:00→20:53)
[2017-02-23 11:22] LABS: BACTERIA, URINE RARE /hpf; BILIRUBIN, URINE NEG (NEG); BLOOD, URINE NEG (NEG); GLUCOSE,URINE NEG (NEG); KETONE, URINE 40 mg/dL (NEG); MUCUS URINE FEW /lpf (OCC); NITRITE,URINE NEG (NEG); PH, URINE 5.5 (5.0-8.5); SQUAMOUS EPITHELIAL CELL URINE <1 /hpf (0-5); URINE COLOR YELLOW (YELLW/STRAW); URINE LEUKOCYTE ESTERASE LARGE (NEG); WHITE BLOOD CELL CLUMPS RARE
[2017-02-23] MEDS ORDERED: DIATRIZOATE MEGLUM/DIATRIZOATE SOD 9 ML CUP PO ONE (15:45)
[2017-02-23] MEDS ORDERED: LEVOFLOXACIN 500 MG PREMIX INJ 100 ML IV SCH (17:00)
--- NOTE | 2017-02-23 17:23 | HHI.PR ---
Subjective Remarks C/R Surg Afevriel, VSS c/o bloating , taking little PO +BM/stool Objective - Vital Signs Date Time Temp Pulse Resp B/P (MAP) Pulse Ox O2 Delivery O2 Flow Rate FiO2 02/23/17 15:21 97.4 02/23/17 15:16 58 18 139/64 (89) 99 Result Diagram: 02/23/17 0510 02/23/17 0510 Objective Remarks PE alert, ill appearing HEENT - dry, pink membranes, poor skin turgor Chest - clear Abd - soft, more tympany, non-tender Extr - no edema A/P Assessment and Plan Imp: Hx mets/colon cancer - now with recurrent ileus or SBO replace IVF - watch bun/cr OOB CT with contrast to check duodenum/GOO Jorge Luis Baca MD Feb 23, 2017 17:23
--- NOTE | 2017-02-23 17:51 | MH ---
cc: JENNI DUNNE M.D., ANDREW H. M.D. DATE OF ADMISSION 02/22/2017 ADMISSION DIAGNOSIS Abdominal pain, history of metastatic colon cancer, possible bowel obstruction. HISTORY OF PRESENT ILLNESS Mr. Cavanaugh is a 76-year-old male known from previous admissions. He has had colon cancer many years ago and had metastasis to the lung which was resected. 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 The patient had been doing well until most recently when he developed obstruction of his right kidney and had a stent placed. Since stent placed he has had more crampy abdominal pain and bloating. He was admitted a couple of days ago for abdominal pain and bloating, possible bowel obstruction by CT scan. This appeared to resolve with conservative treatment and he was discharged home. The patient called the undersigned the morning of admission complaining of additional abdominal bloating and decreased oral intake for about 2 days. He has been urinating very little. Has been passing gas but only liquid stool. Denies any fever. Feels like he cannot eat but has not had any vomiting. No rectal bleeding or melena. PAST MEDICAL AND SURGICAL HISTORY Please see his recent visits for a more complete past medical and surgical history. PHYSICAL EXAMINATION GENERAL: Pertinent physical, a very pleasant, chronically ill male in no acute distress. HEENT: Remarkable for very dry, somewhat pink membranes, nonicteric sclera. NECK: Supple without gross adenopathy. CHEST: Relatively clear, diminished in the bases. CARDIOVASCULAR: Heart had a regular rhythm. ABDOMEN: The abdomen is really soft but rounded. Some tympany. Maybe loops of bowel palpable. No rebound or guarding or any masses. No obvious hernias. EXTREMITIES: No cyanosis or clubbing and no pedal edema. LABORATORY FINDINGS White count was 5.9, hemoglobin 12.0, platelet count was 173,000. Electrolytes remarkable for sodium 137, BUN of 47, creatinine 2.3. Urine showed 88 white cells and 5 red cells, specific gravity of 1.017. Flat and upright abdomen shows some dilated loops of bowel with air-fluid levels. Not much air in the colon but not much air in the stomach. IMPRESSION A 76-year-old male with metastatic colon cancer recently found to have obstruction of the right kidney and stent placement, now recurrent small-bowel obstruction or ileus with failure to eat and keep fluids down. He is quite dehydrated and BUN and creatinine are elevated. We will resuscitate with IV fluids and bowel rest. Hold off on nasogastric tube for the moment until we see if he requires decompression. Will get CT scan with contrast to see if he does have an obstruction of either the duodenum or maybe partial obstruction of the small bowel, possibly due to carcinomatosis. We will hold off on additional narcotics unless he requires pain control. MD KAREN Spivey/KK /5:26 PM /5:39 PM
--- NOTE | 2017-02-23 18:15 | RADRPT ---
EXAM DATE/TIME: 02/23/2017 17:43 [facility] COMPARISON: CT ABDOMEN & PELVIS W/O CONTRAST, February 04, 2017, 14:36. INDICATIONS : Distention. ORAL CONTRAST: Partial prescribed oral contrast ingested. RADIATION DOSE: 6.72 CTDIvol (mGy) MEDICAL HISTORY : Hypertension. Carcinoma, colon. Carcinoma, testicular. SURGICAL HISTORY : None. ENCOUNTER: Initial ACUITY: 1 day PAIN SCALE: 6/10 LOCATION: Bilateral abdomen TECHNIQUE: Volumetric scanning of the abdomen and pelvis was performed. Using automated exposure control and ad justment of the mA and/or kV according to patient size, radiation dose was kept as low as reasonably achievable to obtain optimal diagnostic quality images. DICOM format image data is available electro nically for review and comparison. FINDINGS: CT scan had demonstrated diffusely dilated loops of small bowel, right hydronephrosis with ureteral s tent in place, small left pleural effusion, and a small amount of ascites. On today's examination, the size of the left pleural effusion is stable. The right lower lung is dion ar. There is a small hiatus hernia. The liver, spleen, and pancreas are unremarkable for noncontras t technique. The gallbladder is distended without calcified stones. No evidence of biliary ductal d ilatation. There is diffuse distended loops of small bowel throughout the abdomen measuring up to 4.7 cm in widt h (previously measured up to 4.4 cm). The overall degree of distention throughout the small bowel hahn s increased and there are multiple small air-fluid levels throughout the distended loops of small bow el. The stomach is markedly distended, significantly greater than on prior examination and contains predominantly fluid within the lumen. Stable configuration to the right sided hydronephrosis with right ureteral stent in place. No eviden ce of hydronephrosis on the left side. The abdominal aorta is normal in dimension with wall calcific ation. No evidence of free intraperitoneal gas. No gaseous structures are stable with moderate dege nerative changes throughout the lumbar spine. CONCLUSION: 1. Overall increase in number of distended loops of small bowel with slight increase in the maximum d imension of small bowel, characteristic of small bowel obstruction. 2. Distended stomach containing predominantly fluid. 3. Stable right-sided hydronephrosis with double J stent in place. Matt Henson MD on February 23, 2017 at 18:07 Board Certified Radiologist. This report was verified electronically.
[2017-02-23] MEDS: PANTOPRAZOLE SODIUM 40 MG VIAL IV PUSH SCH (18:58)
[2017-02-24 04:16] VITALS: BP 127/60; PULSE 58; RESP 18; TEMP 98.4; O2SAT 99
[2017-02-24] MEDS: LEVOTHYROXINE SODIUM 50 MCG TAB PO SCH (05:26)
[2017-02-24] MEDS: SODIUM CHLOR 0.9% 1000 ML INJ 1,000 ML IV SCH ×4 (05:28→21:14)
[2017-02-24 07:27] VITALS: BP 134/59; PULSE 61; RESP 18; TEMP 98.1; O2SAT 99
[2017-02-24 10:40] LABS: AUTOMATED NEUTROPHIL # 4.4 TH/MM3 (1.8-7.7); BASOPHIL % 0.3 % (0.0-2.0); EOSINOPHIL # 0.2 TH/MM3 (0-0.4); EOSINOPHIL % 2.5 % (0.0-4.0); HEMATOCRIT 34.3 % (39.0-51.0); HEMOGLOBIN 11.6 GM/DL (13.0-17.0); LYMPH % 18.4 % (9.0-44.0); LYMPHOCYTE # 1.2 TH/MM3 (1.0-4.8); MEAN CELL VOLUME 88.3 FL (80.0-100.0); MEAN PLATELET VOLUME 8.1 FL (7.0-11.0); MONO % 9.2 % (0.0-8.0); MONOCYTE # 0.6 TH/MM3 (0-0.9); NEUT % 69.6 % (16.0-70.0); PLATELET COUNT 171 TH/MM3 (150-450); RED BLOOD COUNT 3.88 MIL/MM3 (4.50-5.90); RED CELL DISTRIBUTION WIDTH 15.1 % (11.6-17.2); WHITE BLOOD COUNT 6.3 TH/MM3 (4.0-11.0)
[2017-02-24 11:09] LABS: BICARBONATE 19.4 MEQ/L (21.0-32.0); CALCIUM 7.6 MG/DL (8.5-10.1); CREATININE 1.75 MG/DL (0.60-1.30)
[2017-02-24 11:28] VITALS: BP 151/67; PULSE 58; RESP 18; TEMP 97.6; O2SAT 99
[2017-02-24] MEDS: amLODIPine BESYLATE 5 MG TAB PO SCH (12:05)
[2017-02-24] MEDS: CARVEDILOL 12.5 MG TAB PO SCH ×2 (12:05→21:13)
[2017-02-24 16:22] VITALS: BP 152/63; PULSE 60; RESP 18; TEMP 95.2; O2SAT 100
[2017-02-24 19:49] VITALS: BP 137/71; PULSE 57; RESP 17; TEMP 97.4; O2SAT 100
[2017-02-24] MEDS: PANTOPRAZOLE SODIUM 40 MG VIAL IV PUSH SCH (19:56)
[2017-02-24] MEDS: ALVIMOPAN 12 MG CAPSULE PO SCH (21:13)
[2017-02-25 04:40] VITALS: BP 145/65; PULSE 55; RESP 16; TEMP 97.7; O2SAT 97
[2017-02-25] MEDS: LEVOTHYROXINE SODIUM 50 MCG TAB PO SCH (05:30)
[2017-02-25] MEDS: SODIUM CHLOR 0.9% 1000 ML INJ 1,000 ML IV SCH ×3 (05:30→20:50)
[2017-02-25 08:00] VITALS: BP 144/65; PULSE 68; RESP 18; TEMP 98.2; O2SAT 97
[2017-02-25] MEDS: ALVIMOPAN 12 MG CAPSULE PO SCH ×2 (09:57→20:50)
[2017-02-25] MEDS: CARVEDILOL 12.5 MG TAB PO SCH ×2 (09:57→20:50)
[2017-02-25] MEDS: amLODIPine BESYLATE 5 MG TAB PO SCH (09:57)
[2017-02-25] MEDS ORDERED: metroNIDAZOLE 500 MG INJ 100 ML IV ONE (12:30)
[2017-02-25 12:36] VITALS: BP 135/62; PULSE 58; RESP 15; TEMP 96.2; O2SAT 100
[2017-02-25] MEDS ORDERED: LEVOFLOXACIN/DEXTROSE 250 MG/50 ML IV SCH (17:00)
[2017-02-25 17:10] VITALS: BP 157/70; PULSE 57; RESP 12; TEMP 96; O2SAT 99
[2017-02-25] MEDS: PANTOPRAZOLE SODIUM 40 MG VIAL IV PUSH SCH (18:35)
[2017-02-25 20:07] VITALS: BP 135/65; PULSE 55; RESP 16; TEMP 97.3; O2SAT 99
[2017-02-25 23:57] VITALS: BP 129/63; PULSE 56; RESP 18; TEMP 98; O2SAT 100
[2017-02-26] MEDS ORDERED: LACTATED RINGER'S 1000 ML IV PRN (00:30)
[2017-02-26] MEDS ORDERED: CHLORHEXIDINE GLUCONATE 2 % 1 PACK (2 CLOTHS) TOPICAL PRN (00:30)
[2017-02-26] MEDS ORDERED: POVIDONE IODINE 5% (ANTISEPSIS KIT) 4 APPLICATIONS EACH NARE PRN (00:30)
[2017-02-26] MEDS ORDERED: SODIUM CHLORID 0.9% 500 ML IV PRN (00:30)
[2017-02-26] MEDS ORDERED: METOPROLOL TARTRATE 25 MG TAB PO PRN (00:30)
[2017-02-26 03:41] VITALS: BP 122/58; PULSE 56; TEMP 97.4; O2SAT 99
[2017-02-26] MEDS: LEVOTHYROXINE SODIUM 50 MCG TAB PO SCH (06:00)
[2017-02-26] MEDS: CARVEDILOL 12.5 MG TAB PO SCH ×2 (06:15→21:58)
[2017-02-26] MEDS ORDERED: BUPIVACAINE/EPINEPHRINE 0.5% PF 30 ML VIAL ONE (06:23)
[2017-02-26] MEDS ORDERED: FAMOTIDINE 20 MG/2 ML VIAL ONE (06:34)
[2017-02-26] MEDS ORDERED: ACETAMINOPHEN 1000 MG/100 ML 100 ML IV ONE (06:34)
[2017-02-26] MEDS ORDERED: metroNIDAZOLE 500 MG INJ 100 ML IV ONE (07:08)
[2017-02-26] MEDS ORDERED: MORPHINE SULFATE 30 MG/30 ML PCA IV SCH (08:30)
[2017-02-26] MEDS ORDERED: NALOXONE HCL 0.4 MG/ML AMP IV PUSH PRN (08:30)
[2017-02-26] MEDS: ALVIMOPAN 12 MG CAPSULE PO SCH ×2 (09:00→21:58)
[2017-02-26] MEDS: amLODIPine BESYLATE 5 MG TAB PO SCH (09:00)
[2017-02-26] MEDS ORDERED: DO NOT ADM ANY ANTICOAGULANT DRUGS PRN (09:00)
[2017-02-26] MEDS: SODIUM CHLOR 0.9% 1000 ML INJ 1,000 ML IV SCH ×5 (09:44→23:25)
[2017-02-26] MEDS ORDERED: LIDOCAINE HCL 1% PF 5 ML SYRINGE OTHER ONE (12:00)
[2017-02-26] MEDS ORDERED: ONDANSETRON HCL 4 MG/2 ML VIAL IV ONE (12:00)
[2017-02-26] MEDS ORDERED: GLYCOPYRROLATE 1 MG/5 ML SYRINGE IV PUSH ONE (12:00)
[2017-02-26] MEDS ORDERED: ROCURONIUM INJ 50 MG/5 ML SYRINGE IV PUSH ONE (12:00)
[2017-02-26] MEDS ORDERED: ePHEDrine/NS 25 MG/5 ML SYRINGE IV ONE (12:00)
[2017-02-26] MEDS ORDERED: LACTATED RINGER'S 1000 ML INJ 1,000 ML IV ONE (12:00)
[2017-02-26] MEDS ORDERED: NEOSTIGMINE 5 MG/5 ML SYRINGE IV PUSH ONE (12:00)
[2017-02-26] MEDS ORDERED: SUCCINYLCHOLINE CHLORIDE 100 MG/5 ML SYRINGE IV PUSH ONE (12:00)
[2017-02-26] MEDS ORDERED: PROPOFOL 200 MG/20 ML AMP IV ONE (12:00)
[2017-02-26] MEDS ORDERED: DEXAMETHASONE SOD PHOS 4 MG/ML VIAL IV ONE (12:00)
[2017-02-26 13:42] VITALS: BP 141/65; PULSE 62; RESP 19; TEMP 98; O2SAT 98
[2017-02-26] MEDS: PCA - TOTAL MG MORPHINE DELIVERED PER SHIFT SCH ×3 (14:00→22:00)
[2017-02-26] MEDS: PANTOPRAZOLE SODIUM 40 MG VIAL IV PUSH SCH (17:04)
[2017-02-26 20:00] VITALS: BP 150/70; PULSE 58; RESP 16; TEMP 96.9; O2SAT 99
[2017-02-26] MEDS: metroNIDAZOLE 500 MG INJ 100 ML IV SCH (23:24)
[2017-02-27] VITALS: BP 134/65; PULSE 63; RESP 16; TEMP 97.1; O2SAT 98
[2017-02-27] MEDS: LEVOTHYROXINE SODIUM 50 MCG TAB PO SCH (05:21)
[2017-02-27] MEDS: PCA - TOTAL MG MORPHINE DELIVERED PER SHIFT SCH ×3 (05:22→22:00)
[2017-02-27] MEDS: metroNIDAZOLE 500 MG INJ 100 ML IV SCH (06:20)
[2017-02-27 08:00] VITALS: BP 154/85; PULSE 60; RESP 18; TEMP 96.5; O2SAT 97
[2017-02-27] MEDS: SODIUM CHLOR 0.9% 1000 ML INJ 1,000 ML IV SCH ×2 (08:38→22:18)
[2017-02-27] MEDS: ALVIMOPAN 12 MG CAPSULE PO SCH ×2 (08:38→20:32)
[2017-02-27] MEDS: amLODIPine BESYLATE 5 MG TAB PO SCH (08:38)
[2017-02-27] MEDS: CARVEDILOL 12.5 MG TAB PO SCH ×2 (08:38→20:31)
--- NOTE | 2017-02-27 10:05 | HHI.PR ---
Subjective Remarks C/R Surg POD #1 Afebrile, VSS UO good +flatus Objective - Vital Signs Date Time Temp Pulse Resp B/P (MAP) Pulse Ox O2 Delivery O2 Flow Rate FiO2 02/27/17 08:00 96.5 60 18 154/85 (108) 97 02/26/17 13:00 Nasal Cannula 2 Result Diagram: 02/24/17 1000 02/24/17 1000 Objective Remarks PE alert, Abd - soft, flat, wound dry A/P Assessment and Plan Imp: stable post-op OOB adv diet decr IVF Jorge Luis Baca MD Feb 27, 2017 10:05
[2017-02-27 11:43] VITALS: O2SAT 97
[2017-02-27 12:00] VITALS: BP 154/73; PULSE 65; RESP 19; TEMP 95.6; O2SAT 99
[2017-02-27 16:00] VITALS: BP_SYST 163; BP_SYST 168; BP_DIAS 67; BP_DIAS 75; PULSE 64; RESP 19; TEMP 96; O2SAT 97
[2017-02-27] MEDS: PANTOPRAZOLE SODIUM 40 MG VIAL IV PUSH SCH (18:00)
[2017-02-27 20:00] VITALS: BP_SYST 160; BP_SYST 204; BP_DIAS 70; BP_DIAS 84; PULSE 63; RESP 17; TEMP 98.6; O2SAT 98
[2017-02-28] VITALS: BP 186/72; PULSE 58; RESP 17; TEMP 96; O2SAT 97
[2017-02-28] MEDS: LEVOTHYROXINE SODIUM 50 MCG TAB PO SCH (05:13)
[2017-02-28 05:44] LABS: AUTOMATED NEUTROPHIL # 4.5 TH/MM3 (1.8-7.7); BASOPHIL % 0.3 % (0.0-2.0); EOSINOPHIL # 0.3 TH/MM3 (0-0.4); HEMATOCRIT 36.4 % (39.0-51.0); HEMOGLOBIN 12.3 GM/DL (13.0-17.0); LYMPH % 21.1 % (9.0-44.0); LYMPHOCYTE # 1.4 TH/MM3 (1.0-4.8); MEAN CORPUSCULAR HEMOGLOBIN 29.4 PG (27.0-34.0); MEAN CORPUSCULAR HGB CONC 33.8 % (32.0-36.0); MEAN PLATELET VOLUME 7.8 FL (7.0-11.0); MONO % 6.9 % (0.0-8.0); MONOCYTE # 0.5 TH/MM3 (0-0.9); NEUT % 66.7 % (16.0-70.0); PLATELET COUNT 184 TH/MM3 (150-450); RED BLOOD COUNT 4.19 MIL/MM3 (4.50-5.90); RED CELL DISTRIBUTION WIDTH 15.3 % (11.6-17.2); WHITE BLOOD COUNT 6.7 TH/MM3 (4.0-11.0)
[2017-02-28 05:51] LABS: BICARBONATE 22.2 MEQ/L (21.0-32.0); CALCIUM 7.9 MG/DL (8.5-10.1); CREATININE 1.24 MG/DL (0.60-1.30)
[2017-02-28] MEDS: PCA - TOTAL MG MORPHINE DELIVERED PER SHIFT SCH (05:52)
[2017-02-28 08:00] VITALS: BP 157/100; PULSE 57; RESP 22; TEMP 96.7; O2SAT 98
[2017-02-28] MEDS: CARVEDILOL 12.5 MG TAB PO SCH ×2 (08:33→22:23)
[2017-02-28] MEDS: amLODIPine BESYLATE 5 MG TAB PO SCH (08:33)
[2017-02-28] MEDS: ALVIMOPAN 12 MG CAPSULE PO SCH ×2 (08:33→22:23)
--- NOTE | 2017-02-28 09:40 | HHI.PR ---
Subjective Remarks C/R Surg POD #2 Afebrile, VSS UO good +flatus Objective - Vital Signs Date Time Temp Pulse Resp B/P (MAP) Pulse Ox O2 Delivery O2 Flow Rate FiO2 02/28/17 08:00 96.7 57 22 157/100 (119) 98 02/26/17 13:00 Nasal Cannula 2 Result Diagram: 02/28/1751702/28/17 0518 Objective Remarks PE alert, Abd - soft, flat, wound dry A/P Assessment and Plan Imp: OOB adv diet decr IVF Jorge Luis Baca MD Feb 28, 2017 09:40
[2017-02-28] MEDS ORDERED: oxyCODONE/ACETAMINOPHEN 7.5 MG/325 MG TAB PO PRN (09:45)
[2017-02-28] MEDS: SODIUM CHLOR 0.9% 1000 ML INJ 1,000 ML IV SCH (11:38)
[2017-02-28 12:00] VITALS: BP 134/65; PULSE 50; RESP 19; TEMP 97.1; O2SAT 98
[2017-02-28] MEDS: PANTOPRAZOLE SODIUM 40 MG VIAL IV PUSH SCH (15:19)
[2017-02-28 16:00] VITALS: BP_SYST 171; BP_SYST 177; BP_DIAS 71; BP_DIAS 77; PULSE 54; RESP 16; TEMP 96.6; O2SAT 99
[2017-02-28 20:00] VITALS: BP 142/67; PULSE 54; RESP 18; TEMP 95.2; O2SAT 99
--- NOTE | 2017-02-28 20:40 | MP ---
cc: JENNI DUNNE M.D., ANDREW H. M.D. DATE OF SURGERY: 02/26/2017. PREOPERATIVE DIAGNOSIS: Partial small-bowel obstruction, history of colon cancer with metastasis. PROCEDURE PERFORMED: Exploratory laparotomy with lysis of adhesions and enteroenterostomy POSTOPERATIVE DIAGNOSIS: Intra-abdominal carcinomatosis with small-bowel obstruction. SURGEON: Jorge Luis Baca MD. DESCRIPTION OF THE PROCEDURE IN DETAIL: The patient was placed in the supine position. After adequate general anesthesia, the abdomen was prepped with Betadine solution and draped in usual sterile fashion. The abdomen was opened through the previous transverse lower abdominal transverse incision dividing very atrophic rectus muscles with electrocautery. Exploration revealed the proximal bowel to be very thickened and chronically dilated. There were two points of obstruction, one in the left pelvic inlet and one of the right pelvic inlet where the bowel was tethered to the retroperitoneum from metastatic cancer. There were several nodules in the omentum also consistent with metastatic cancer and one of these was excised and sent for pathology. The bowel distal to the right obstruction went to the terminal ileum and was pretty unremarkable. The colon was palpated and felt to be pretty normal. The liver had no palpable masses. Stomach and duodenum were pretty unremarkable. There was some clear ascites in the abdomen but no significant peritoneal seeding was noted. Attempts were made to free up these two areas of obstruction. However, it was felt that it would be somewhat difficult due to the location of the colon on the left side and the ureter on the right side. For that reason, a palliative bypass was undertaken sewing the dilated proximal bowel to the collapsed distal ileum and firing the STANLEY stapler across the antimesenteric ends of the bowel and closing the enterotomy with a TA 60 stapler. 3-0 Vicryl crotch suture was placed. The abdomen was irrigated copiously with normal saline. Adequate hemostasis achieved. Transverse incision was then closed anatomically in two layers using #1 PDS sutures to reapproximate the respective fascial layers. The subcutaneous tissues were irrigated copiously and the skin was closed with a row of surgical jagdeep. The wound area washed with normal saline and dried. A sterile dressing of Telfa and gauze was applied. The patient tolerated the procedure quite well and was brought to the recovery room in stable condition. MD KAREN Spivey/PAMELLA /9:56 AM /8:18 PM
[2017-03-01] VITALS: BP 145/60; PULSE 98; RESP 56; TEMP 96.4; O2SAT 98
[2017-03-01] MEDS: SODIUM CHLOR 0.9% 1000 ML INJ 1,000 ML IV SCH (00:58)
[2017-03-01] MEDS: LEVOTHYROXINE SODIUM 50 MCG TAB PO SCH (06:19)
[2017-03-01 08:00] VITALS: BP 133/66; PULSE 51; RESP 17; TEMP 96.2; O2SAT 98
[2017-03-01] MEDS: amLODIPine BESYLATE 5 MG TAB PO SCH (08:21)
[2017-03-01] MEDS: ALVIMOPAN 12 MG CAPSULE PO SCH (08:21)
[2017-03-01] MEDS: CARVEDILOL 12.5 MG TAB PO SCH (08:23)
[2017-03-01] MEDS ORDERED: OXYC1TAB35 PO (09:23)
--- NOTE | 2017-03-01 09:41 | HHI.PR ---
Subjective Remarks C/R Surg POD #3 Afebrile, VSS UO good +flatus antoine PO Objective - Vital Signs Date Time Temp Pulse Resp B/P (MAP) Pulse Ox O2 Delivery O2 Flow Rate FiO2 03/01/17 08:00 96.2 51 17 133/66 (88) 98 02/26/17 13:00 Nasal Cannula 2 Result Diagram: 02/28/1751702/28/17517 Objective Remarks PE alert, Abd - soft, flat, wound dry A/P Assessment and Plan Imp: OOB adv diet decr IVF dc plans Jorge Luis Baca MD Mar 01, 2017 09:41
[2017-03-01 12:00] VITALS: BP 165/76; PULSE 55; RESP 18; TEMP 97; O2SAT 97
== END 2017-03-01 14:50 | disposition home or self-care (01) | DRG 330 ==
LOC: NEPHCDU 17:07 → N07B 02-26 08:44 → N07A 02-26 13:31
PROVIDERS: ADMIT Colon & Rectal Surgery; ATTEND Colon & Rectal Surgery
PROC: 0D1B0ZB Bypass Ileum to Ileum, Open Approach (ICD-10-PCS; principal; 2017-02-26 06:52)
DX: K56.690 Other partial intestinal obstruction (principal); C78.6 Secondary malignant neoplasm of retroperitoneum and peritoneum; E86.0 Dehydration; Z92.3 Personal history of irradiation; Z92.21 Personal history of antineoplastic chemotherapy
CPT/HCPCS: 74020; 74176; 80048; 80053; 81001; 82378; 85025; 87086; 88305; C9113; J0131; J0330; J0690; J1100; J1642; J1956; J2270; J2405; J2710; J7030; J7040; J7120; Q9963